=== PATIENT | male | born 1980 | race Caucasian/White ===

== ENCOUNTER 2019-02-10 07:21 | Emergency (ER) | payer SELFPAY ==
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
== END 2019-02-10 08:27 | disposition home or self-care (01) ==
LOC: JD.ED 07:21
DX: J11.1 Influenza due to unidentified influenza virus with other respiratory manifestations (principal); F17.210 Nicotine dependence, cigarettes, uncomplicated; Z88.0 Allergy status to penicillin
CPT/HCPCS: 99282; 99283